=== PATIENT | male | born 1970 | race Caucasian/White ===

== ENCOUNTER 2019-02-10 15:39 | Emergency (ER) | payer OTHER ==
--- NOTE | 2019-02-10 15:43 | EDM.PDOC ---
ED HPI GENERAL MEDICAL PROBLEM - General Chief Complaint: General Stated Complaint: AMB Time Seen by Provider: 02/10/19 16:55 - History of Present Illness INITIAL COMMENTS - FREE TEXT/NARRATIVE: HISTORY AND PHYSICAL: History of present illness: Patient is a 48-year-old white male with history of CHF coronary artery disease with 6 vessel CABG in 2016 also set a history of recurrent ascites and pleural effusion related to liver disease and CHF for which she's had as much as 8 L taken off in the recent past . [facility] in [place]. The center by his private medical doctor at the [facility] with a 25 pound plus weight gain tense ascites decreased breath sounds in the right blood pressure initially 90/41 patient awake alert on arrival with no complaints other than the weight gain in the abdominal distention O2 sat is 98%. Patient denies chest pain denies abdominal pain denies fever or chills Review of systems: As per history of present illness and below otherwise all systems reviewed and negative. Past medical history: As per history of present illness and as reviewed below otherwise noncontributory. Surgical history: As per history of present illness and as reviewed below otherwise noncontributory. Social history: No reported history of drug or alcohol abuse. Family history: As per history of present illness and as reviewed below otherwise noncontributory. Physical exam: HEENT: Atraumatic, normocephalic, pupils reactive, , mucous membranes moist, throat clear, neck supple, nontender, trachea midline. Lungs: Clear to auscultation, breath sounds equal bilaterally, chest nontender. Heart: S1S2, regular, negative for clicks, rubs, or JVD. Abdomen: Soft, protuberant with tense ascites noted, nontender. Negative for masses or hepatosplenomegaly. Negative for costovertebral tenderness. Pelvis: Stable nontender. Genitourinary: Deferred. Rectal: Deferred. Extremities: Atraumatic, negative for cords or calf pain. Neurovascular unremarkable. 2+ pretibial edema inferior extremities noted Neuro: Awake, alert, oriented. Cranial nerves II through XII unremarkable. Cerebellum unremarkable. Motor and sensory unremarkable throughout. Exam nonfocal. Diagnostics: CBC CMP troponin PT/INR BNP EKG chest x-ray ammonia level ABG [employer]: IV O2 monitor Impression: #1 tense ascites #225 pound weight gain #3 history of CHF #4 history of coronary artery disease with 6 vessel CABG Definitive disposition and diagnosis as appropriate pending reevaluation and review of above. - Related Data Allergies Allergy/AdvReac Type Severity Reaction Status Date / Time No Known Allergies Allergy Verified 02/10/19 15:44 Home Meds: Home Meds . [No Known Home Meds] 02/10/19 [History] ED ROS GENERAL - Review of Systems Review Of Systems: ROS reveals no pertinent complaints other than HPI. ED EXAM, GENERAL - Physical Exam Exam: See Below (See dictation) Course - Vital Signs Last Recorded V/S: Last Vital Signs Temp 36.3 C 02/10/19 15:45 Pulse 96 02/10/19 16:28 Resp 16 02/10/19 16:28 BP 90/59 L 02/10/19 16:28 Pulse Ox 98 02/10/19 16:28 - Orders/Labs/Meds Orders: Active Orders 24 hr Category Date Time Status Cardiac Monitoring [RC] . DIRECTED Care 02/10/19 15:43 Active EKG Documentation Completion [RC] STAT Care 02/10/19 15:43 Active Pulse Oximetry [RC] ASDIRECTED Care 02/10/19 15:43 Active Chest 1V Frontal [CR] Stat Exams 02/10/19 15:43 Taken BLOOD GAS ARTERIAL [BG] Stat Lab 02/10/19 16:25 Received Labs: Laboratory Tests 02/10/19 02/10/19 02/10/19 Range/Units 15:35 15:35 15:35 WBC 7.35 (4.0-11.0) K/uL RBC 3.05 L (4.50-5.90) M/uL Hgb 8.5 L (13.0-17.0) g/dL Hct 28.9 L (38.0-50.0) % MCV 94.8 (80.0-98.0) fL MCH 27.9 (27.0-32.0) pg MCHC 29.4 L (31.0-37.0) g/dL RDW Std Deviation 68.6 H (28.0-62.0) fl RDW Coeff of Thelma 20 H (11.0-15.0) % Plt Count 252 (150-400) K/uL MPV 8.90 (7.40-12.00) fL Neut % (Auto) 74.8 (48.0-80.0) % Lymph % (Auto) 15.6 L (16.0-40.0) % [place] % (Auto) 9.0 (0.0-15.0) % Eos % (Auto) 0.3 (0.0-7.0) % Baso % (Auto) 0.3 (0.0-1.5) % Neut # (Auto) 5.5 (1.4-5.7) K/uL Lymph # (Auto) 1.2 (0.6-2.4) K/uL [place] # (Auto) 0.7 (0.0-0.8) K/uL Eos # (Auto) 0.0 (0.0-0.7) K/uL Baso # (Auto) 0.0 (0.0-0.1) K/uL Nucleated RBC % 0.0 /100WBC Nucleated RBCs # 0 K/uL INR 1.04 Ammonia (19-54) ug/dL B-Natriuretic Peptide 695 H (<100) PG/ML Urine Color Urine Appearance Urine pH (5.0-8.0) Ur Specific [place] (1.001-1.035) Urine Protein (NEGATIVE) mg/dL Urine Glucose (UA) (NEGATIVE) mg/dL Urine Ketones (NEGATIVE) mg/dL Urine Occult Blood (NEGATIVE) Urine Nitrite (NEGATIVE) Urine Bilirubin (NEGATIVE) Urine Ictotest Urine Urobilinogen (<2.0) EU/dL Ur Leukocyte Esterase (NEGATIVE) Urine RBC (0-2/HPF) Urine WBC (0-5/HPF) Ur Epithelial Cells (NONE-FEW) Calcium Oxalate Crystal (NEGATIVE) Urine Bacteria (NEGATIVE) 02/10/19 02/10/19 Range/Units 15:35 16:05 WBC (4.0-11.0) K/uL RBC (4.50-5.90) M/uL Hgb (13.0-17.0) g/dL Hct (38.0-50.0) % MCV (80.0-98.0) fL MCH (27.0-32.0) pg MCHC (31.0-37.0) g/dL RDW Std Deviation (28.0-62.0) fl RDW Coeff of Thelma (11.0-15.0) % Plt Count (150-400) K/uL MPV (7.40-12.00) fL Neut % (Auto) (48.0-80.0) % Lymph % (Auto) (16.0-40.0) % [place] % (Auto) (0.0-15.0) % Eos % (Auto) (0.0-7.0) % Baso % (Auto) (0.0-1.5) % Neut # (Auto) (1.4-5.7) K/uL Lymph # (Auto) (0.6-2.4) K/uL [place] # (Auto) (0.0-0.8) K/uL Eos # (Auto) (0.0-0.7) K/uL Baso # (Auto) (0.0-0.1) K/uL Nucleated RBC % /100WBC Nucleated RBCs # K/uL INR Ammonia 35 (19-54) ug/dL B-Natriuretic Peptide (<100) PG/ML Urine Color YELLOW Urine Appearance CLEAR Urine pH 5.5 (5.0-8.0) Ur Specific [place] 1.025 (1.001-1.035) Urine Protein TRACE H (NEGATIVE) mg/dL Urine Glucose (UA) NEGATIVE (NEGATIVE) mg/dL Urine Ketones NEGATIVE (NEGATIVE) mg/dL Urine Occult Blood NEGATIVE (NEGATIVE) Urine Nitrite NEGATIVE (NEGATIVE) Urine Bilirubin SMALL H (NEGATIVE) Urine Ictotest NEGATIVE Urine Urobilinogen 0.2 (<2.0) EU/dL Ur Leukocyte Esterase NEGATIVE (NEGATIVE) Urine RBC 0-1 (0-2/HPF) Urine WBC 0-1 (0-5/HPF) Ur Epithelial Cells RARE (NONE-FEW) Calcium Oxalate Crystal FEW (NEGATIVE) Urine Bacteria FEW (NEGATIVE) Departure - Departure Time of Disposition: 16:55 Disposition: DC/Tfer to Acute Hospital 02 Clinical Impression: CHF, Congestive heart failure, Ascites, Diabetes, Coronary artery disease - Discharge Information Forms: ED Department Discharge - My Orders Last 24 Hours: My Active Orders 02/10/19 15:43 Cardiac Monitoring [RC] . DIRECTED EKG Documentation Completion [RC] STAT Pulse Oximetry [RC] ASDIRECTED Chest 1V Frontal [CR] Stat 02/10/19 16:25 BLOOD GAS ARTERIAL [BG] Stat - Assessment/Plan Last 24 Hours: My Active Orders 02/10/19 15:43 Cardiac Monitoring [RC] . DIRECTED EKG Documentation Completion [RC] STAT Pulse Oximetry [RC] ASDIRECTED Chest 1V Frontal [CR] Stat 02/10/19 16:25 BLOOD GAS ARTERIAL [BG] Stat
--- NOTE | 2019-02-10 17:08 | CR ---
INDICATION: History of cardiac problems. COMPARISON: None available TECHNIQUE: Portable AP erect chest performed at 3:49 p.m. FINDINGS: Patient is status post prior midline sternotomy. There is opacification of the lower 2/3 of the right thorax suggesting combination of pleural fluid and atelectasis. The visualized left cardiac border shows mild enlargement. The pulmonary vessels within the aerated lung richardson appear normal in size. The there is no evidence pleural fluid within the left thorax. There is no evidence of pneumothorax. IMPRESSION: Large right pleural effusion and accompanying pulmonary atelectasis. Dictated by Royer Crowley MD @ Feb 10 2019 5:05PM Signed by Dr. Royer Crowley @ Feb 10 2019 5:06PM
[2019-02-10 17:24] LABS: CHLORIDE,CL 100 mmol/L (98-107); SODIUM,NA 134 mmol/L (136-148)
== END 2019-02-10 18:00 ==
LOC: MW.ED 15:39
DX: I50.9 Heart failure, unspecified (principal); R18.8 Other ascites; I25.10 Atherosclerotic heart disease of native coronary artery without angina pectoris; E11.9 Type 2 diabetes mellitus without complications; R63.5 Abnormal weight gain; Z95.1 Presence of aortocoronary bypass graft
CPT/HCPCS: 36600; 71045; 71045-26; 80053; 81001; 82140; 82803; 83880; 84484; 85025; 85610; 93005; 99285-25